=== PATIENT | female | born 1960 | race American Indian/Alaskan Native ===

== ENCOUNTER 2018-09-29 08:22 | Observation (INO) | payer OTHER, MEDICARE ==
--- NOTE | 2018-09-23 09:33 | History and Physical Report ---
History of Present Illness Date of examination: 09/23/18 Date of admission: 09/29/18 Chief complaint: heavy vaginal bleeding History of present illness: Visit Type: Pre-Op CC: pre op. History of Present Illness: pt presents for Pre op visit: Hysterectomy.....adonis Pt here for perimenopausal bleeding that she continues to have. Pt states that she desires to have hyst. She is s/p Novasure w/o any improvement in sx. She does not have a monthly menses but when it does come it is very heavy. I have discussed with pt the risk/ benefits of salpingectomy at time of LAVH. She desires to have this procedure also. All risk/benefits/alternatives were d/w pt and questions were addressed and answered. Pt is s/p medical clearance from PCP for this procedure. She does have h/o DVT but has not been on medications in two years except for immediately post op. Consents have be signed and placed on the chart. Vital Signs: Patient Profile: 58 Years Old Female Height: 65 inches (165.10 cm) Weight: 213 pounds BMI: 35.44 BP sittin / 84 (left arm) Current Method of Contraception: BTL Date of Last Pap Smear: 08/26/2018 Past History : 8 Term Births: 4 Living Children: 4 Para: 4 Prev : 2 Elect. Ab: 4 [employer] History Operations: positive Notes prior complications from surgery: breast lift/tummy tuck Infection History HIV Risk Eval: no TB exposure: no Partner hx. of genital herpes: no Hx of STD: None Active Medications (reviewed today): SEROQUEL () Current Allergies (reviewed today): * ESTROGEN MEDS (Critical) Past Medical History: Hypothyroidism DVT/PE -1992( afte ocps) 2014 ( after tummy tuck and breast lift)-currently not taking any medications Family History Summary: Reviewed history Last on 08/26/2018 and no changes required:09/28/2018 General Comments - FH: HTN BIPOLOAR D/O DEPRESSION FIBROIDS THYROID CANCER Social History: Reviewed history from 10/06/2014 and no changes required: Patient is no e/t/d retired teacher(high school math) Risk Factors: Smoked Tobacco Use: Never smoker Smokeless Tobacco Use: Never Drug use: no HIV high-risk behavior: no Alcohol use: yes Exercise: yes Seatbelt use: 100 % PAP Smear History: Date of Last PAP Smear: 08/26/2018 [[facility]] [Labs In-House] Physical Exam Appearance: well developed, well nourished, no acute distress Other Exams Breast exam: no masses or nipple discharge Abdomen: soft, non-tender, no masses, bowel sounds normal Skin: no ulcers, xanthomas Lymph: no cervical, axillary, or inguinal adenopathy Extremities: normal alignment, no joint enlargement, crepitus, masses or tenderness; normal tone and strength Genitourinary Exam Vulva: normal, no lesions or discharge Urethral meatus: normal size and location, no lesions or discharge Urethra: no discharge Bladder: no cystocele Vagina: normal appearance, no discharge, lesions. No evidence of cystocele or rectocele. Cervix: normal appearance, no lesions, no discharge Uterus: normal position, midline, mobile Adnexa: no masses or tenderness Past History Past Medical History: other (see hpi) Past Surgical History: other (see hpi) [employer] History: other (see hpi) Social history: other (see hpi) Medications and Allergies Allergies Allergy/AdvReac Type Severity Reaction Status Date / Time Estrogens Allergy Blood clots Verified 09/22/18 16:08 Home Medications Medication Instructions Recorded Confirmed Last Taken Type Quetiapine Fumarate [SEROquel XR] 150 mg PO HS 03/09/15 09/22/18 03/19/15 History Review of Systems All systems: negative - Physical Exam Breasts: Positive: deferred Cardiovascular: Normal S1, Normal S2 Lungs: Positive: Clear to auscultation, Normal air movement Abdomen: Positive: normal appearance, soft, normal bowel sounds. Negative: distention, tenderness, guarding Genitourinary (Female): Positive: normal external genitalia, normal perenium Vulva: both: normal Vagina: Positive: normal moisture Uterus: Positive: normal size, normal contour Anus/Rectum: Positive: normal perianal skin Extremities: Positive: normal. Negative: tenderness, edema Results Result Diagrams: 09/23/18 10:25 09/23/18 10:25 All other labs normal. Assessment and Plan - Patient Problems (1) Ovarian cyst Status: Acute Qualifiers: Laterality: left Qualified Code(s): N83.202 - Unspecified ovarian cyst, left side Plan to address problem: -likely functional as per sono findings -will evaluate via laproscopy -possible cystectomy vs oophrectomy (2) History of DVT (deep vein thrombosis) Status: Acute Plan to address problem: -no meds in 2 yeas except for after surgical procedures -will start lovenoxx 12hrs post op/ SCDs during surgery (3) Hypothyroidism Status: Acute Plan to address problem: -stable at this time -cleared for surgery by PCP (4) Menorrhagia with irregular cycle Status: Acute Plan to address problem: -consented for lavh with bs possible ex lap with AMINA with BS -All risk, benefits and alternatives were d/w pt and questions were addressed and answered. -consents signed and placed on the chart.
[2018-09-23 10:51] LABS: Hematocrit 40.5 % (30.3-42.9); Hemoglobin 13.5 gm/dl (10.1-14.3); Mean Corpuscular HGB Conc 33 % (30-34); Mean Corpuscular Volume 82 fl (79-97); Platelet Count 293 K/mm3 (140-440); Red Blood Count 4.96 M/mm3 (3.65-5.03); Red Cell Distribution Width 14.2 % (13.2-15.2)
[2018-09-23 11:20] LABS: BUN/Creatinine Ratio 13; Blood Urea Nitrogen 9 mg/dL (7-17); Calcium 9.6 mg/dL (8.4-10.2); Hemolysis Index 2
--- NOTE | 2018-09-23 12:22 | Anesthesia Consultation ---
Anesthesia Consult and Med Hx Date of service: 09/23/18 - Airway Anesthetic Teeth Evaluation: Good ROM Head & Neck: Adequate Mental/Hyoid Distance: Adequate Mallampati Class: Class II Intubation Access Assessment: Good - Pulmonary Exam CTA: Yes - Cardiac Exam Cardiac Exam: RRR - Pre-Operative Health Status ASA Pre-Surgery Classification: ASA2 (Pt has hx of delayed onset of anesthesia requiring increased medication , then followed by delayed awakening from anesthesia) - Pulmonary Hx Smoking: No Hx Asthma: No Hx Sleep Apnea: Yes ("mild" no CPAP) - Cardiovascular System Hx Hypertension: No Hx Coronary Artery Disease: No Hx Angina: Yes (recent admit for CP and SOB, ER w/u with negative stress, enzymes, and EKG.) Hx Heart Murmur: Yes - Central Nervous System Hx Seizures: No CVA: No Hx Psychiatric Problems: Yes - Gastrointestinal Hx Gastroesophageal Reflux Disease: Yes - Endocrine Hx Renal Disease: No Hx Liver Disease: No Hx Non-Insulin Dependent Diabetes: No - Hematic Hx Anemia: Yes - Other Systems Hx Alcohol Use: Yes (Occas) Hx Cancer: No
[2018-09-23 12:37] LABS: Basophils % (Manual) 0 % (0.0-1.8); Total Cells Counted 100
[2018-09-23 12:38] LABS: Platelet Estimate Consistent w Auto; RBC Morphology Normal
[~2018-09-29 08:22] MED LIST: ANCEF/STERILE WATER 2 GM/20 ML 2 GM/20 ML SYRINGE IV NR; NEURONTIN PO NR; VERSED IV NR; ceFAZolin 2 GM in NACL 0.9% 100 ML IV ONE
[2018-09-29] MEDS ORDERED: METHYLENE BLUE ONE (08:28)
[2018-09-29] MEDS ORDERED: MARCAINE 0.5% INFILTRATI ONE ×3 (08:28→11:20)
[2018-09-29] MEDS ORDERED: Vasostrict ONE (08:28)
[2018-09-29] MEDS ORDERED: NACL 0.9% 100 ML ONE (08:28)
[2018-09-29] MEDS: LACTATED RINGERS 1,000 ML IV SCH ×2 (08:55→18:32)
[2018-09-29] MEDS ORDERED: ZOFRAN IV PRN (09:28)
--- NOTE | 2018-09-29 09:28 | Anesthesia Day of Surgery ---
Anesthesia Day of Surgery - Day of Surgery Patient Examined: Yes Patient H&P Reviewed: Yes Patient is NPO: Yes
[2018-09-29] MEDS ORDERED: DECADRON ONE (10:09)
[2018-09-29] MEDS ORDERED: TORADOL ONE ×2 (10:09→15:11)
[2018-09-29] MEDS ORDERED: XYLOCAINE MPF 2% ONE (10:09)
[2018-09-29] MEDS ORDERED: ZEMURON IV ONE (10:09)
[2018-09-29] MEDS ORDERED: ZOFRAN ONE (10:09)
[2018-09-29] MEDS ORDERED: SUBLIMAZE ONE (10:10)
[2018-09-29] MEDS ORDERED: KETALAR ONE (10:10)
[2018-09-29] MEDS ORDERED: DIPRIVAN 10 MG/ML IV ONE (10:10)
[2018-09-29] MEDS ORDERED: Vasostrict IM ONE (11:20)
[2018-09-29] MEDS ORDERED: NACL 0.9% IR ONE (12:45)
--- NOTE | 2018-09-29 13:51 | Operative Report ---
Operative Report Operative Report: Date of procedure: 09/29/2018 Pre-operative diagnosis: Menorrhagia Adnexal mass Post-operative diagnosis: Same plus paratubal cysts Procedure name(s): Laparoscopic assisted vaginal hysterectomy Bilateral salpingectomy Surgeon: America Carias MD Freelance Translator: Dr. Tania Fishman Anesthesia: Gen. endotracheal anesthesia EBL: 300 mL Urine output: 500 mL of clear urine out at end of procedure Fluids: 1 L Findings: Left paratubal cyst was noted that included the fimbria of the left 2 Normal ovaries bilaterally grossly normal uterus Adhesions noted in the left adnexa to the pelvic sidewall on the left side Indications: Patient with menorrhagia as well as endometrial ablation. Patient desired definitive therapy. Patient also notes to have adnexal mass on pelvic ultrasound done in office. Patient was consented for above-stated procedures. All risks benefits and alternatives were discussed with patient. Consents were signed and placed on the chart. Procedure: Patient was taken to the operating room where she was placed under general endotracheal anesthesia. She was then prepped and draped in sterile fashion. It was at this point that the medium V care uterine manipulator was placed inside of the uterus after the uterus was sounded to approximately 10 cm. Pink catheter was also placed at this time. Attention was then turned to the umbilicus in which a supraumbilical incision was made. Under direct visualization the 5 mm trocar was placed inside the peritoneum the peritoneum was then insufflated. As at this point that the laparoscopic portion of the procedure was performed. 2 lateral 5 mm ports were also placed under direct visualization. Using the tripolar instrument the upper pedicles were cauterized and transected to the including round ligament with excellent hemostasis noted bilaterally. R fallopian tubes were also removed using the tripolar instrument at this time. Excellent hemostasis noted. Attention was then turned vaginally. A weighted speculum was placed into the vagina and the cervix was grasped with a single-tooth tenaculum 2. The cervix was then injected circumferentially with Pitressin. The cervix was then circumferentially incised with the scalpel and the bladder dissected off of the pubovesical cervical fascia anteriorly with a sponge stick and Metzenbaum scissors. The same procedure was performed posteriorly and the posterior cul-de-sac was entered into sharply without difficulty. At this point a Lexi Clamp was placed over the uterosacral ligaments on either side. These were then transected and suture ligated with 0 Vicryl. Hemostasis was assured. The cardinal ligaments were then clamped on both sides transected and suture ligated in similar fashion. The uterine arteries were then serially clamped with Lexi clamps transected and suture ligated on both sides. Excellent hemostasis was visualized. After it was clear that the uterus had been completely from all pedicles the uterus was removed vaginally intact with cervix intact. The vaginal cuff angles were closed with figure of 8 stitches of 0 Vicryl on both sides. The peritoneum was incorporated in the stitching of the vaginal cuff. A series of interrupted figure of 8 sutures using 0 Vicryl were used to close the entire vaginal cuff. Excellent hemostasis was noted. The vagina was then irrigated copiously. Attention was then turned laparoscopically at which time. Again all pedicles were noted to be hemostatic. The ureters were identified bilaterally with peristalsis noted bilaterally. Frankie was placed along the vaginal cuff and pelvic pedicles. Excellent hemostasis was noted. All instruments were then removed from the abdomen and the vagina. All gas was released from the abdomen. The abdominal incisions were closed using 4-0 Monocryl. All of the abdominal incisions were injected with Marcaine without epi. Patient tolerated the procedure well sponge lap and needle counts were all correct 3 the patient was taken to the recovery room awake and in stable condition.
[2018-09-29] MEDS ORDERED: NARCAN 0.4 MG/1 ML IV PRN (13:53)
[2018-09-29] MEDS ORDERED: MORPHINE IV PRN (13:53)
[2018-09-29] MEDS ORDERED: TYLENOL PO PRN (13:53)
[2018-09-29] MEDS ORDERED: ROBINUL ONE (13:55)
[2018-09-29] MEDS ORDERED: BLOXIVERZ ONE (13:55)
[2018-09-29] MEDS: DILAUDID IV PRN ×2 (14:52→15:05)
[2018-09-29] MEDS ORDERED: DILAUDID ONE (14:52)
[2018-09-29] MEDS: TORADOL IV SCH ×2 (15:11→21:09)
--- NOTE | 2018-09-29 17:22 | Post Anesthesia Evaluation ---
- Post Anesthesia Evaluation Patient Participated: Yes Airway Patent: Yes Stable Respiratory Function: Yes Nausea/Vomiting: No Temp > 96.8F: Yes Pain Manageable: Yes Adequeate Hydration: Yes Anesthesia Complications: No
--- NOTE | 2018-09-29 17:30 | Event Note ---
Date: 09/29/18 Post OP check: Pt sitting in bed eating a regular diet doing well. Clear diet was ordered for dinner. Pt states she has no nausea or vomiting at this time so will con't the regular diet. Findings of surgery were d/w pt and questions were addressed and answered. Pt states pain is well controlled she has no questions or concerns at this time.
[2018-09-29] MEDS: ANCEF/NS 1 GM/50 ML 1 GM/50 ML BAG IV SCH (21:11)
[2018-09-29] MEDS ORDERED: SEROquel 50 MG, SEROquel 100 MG PO SCH (22:00)
[2018-09-30] MEDS ORDERED: LOVENOX SUB-Q SCH ×3 (01:00→10:00)
[2018-09-30] MEDS ORDERED: NORCO 5/325 PO PRN (01:00)
[2018-09-30] MEDS: ANCEF/NS 1 GM/50 ML 1 GM/50 ML BAG IV SCH (03:20)
[2018-09-30] MEDS: TORADOL IV SCH (03:20)
[2018-09-30 05:35] LABS: Hematocrit 33.6 % (30.3-42.9)
--- NOTE | 2018-09-30 08:10 | Progress Note ---
Assessment and Plan - Patient Problems (1) Ovarian cyst Current Visit: No Status: Acute Qualifiers: Laterality: left Qualified Code(s): N83.202 - Unspecified ovarian cyst, left side (2) History of DVT (deep vein thrombosis) Current Visit: No Status: Acute Plan to address problem: -no meds in 2 yeas except for after surgical procedures -will start lovenoxx 12hrs post op/ SCDs during surgery (3) Hypothyroidism Current Visit: No Status: Acute (4) Menorrhagia with irregular cycle Current Visit: No Status: Acute (5) S/P laparoscopic assisted vaginal hysterectomy (LAVH) Current Visit: Yes Status: Acute Plan to address problem: -doing well -routine post op care -d/c home this am if remains AFVSS and has met d/c criteria. Subjective - Subjective Date of service: 09/30/18 Principal diagnosis: POD #1 s/p LAVH, BS, removal of peritubular cyst Interval history: Pt doing well dressed and states she is ready to go home. She denies and fevers or chills and states that her pain is well controlled.She has spontaneously voided as per RN but pt state she has not. I d/w that she will need to void on her own and if she does she will be ready for d/c home. Pt states understanding. Patient reports: appetite normal, voiding normally, pain well controlled, flatus, ambulating normally, no dizzy ambulation, no nauseated Objective - Vital Signs Latest vital signs: Vital Signs Temp Pulse Pulse Resp Resp BP BP 09/30/18 04:20 98 F 62 18 108/74 09/30/18 03:20 18 09/30/18 00:00 98.7 F 71 16 102/74 09/29/18 21:39 18 09/29/18 21:09 18 09/29/18 21:00 80 18 18 09/29/18 19:30 98.4 F 78 16 118/72 09/29/18 15:35 97.6 F 83 14 109/72 09/29/18 15:30 97.7 F 85 16 108/67 09/29/18 15:22 16 09/29/18 15:15 83 10 L 111/72 09/29/18 15:11 13 09/29/18 15:05 14 09/29/18 15:00 84 10 L 105/73 09/29/18 14:52 14 09/29/18 14:45 88 14 114/65 09/29/18 14:30 82 13 116/61 09/29/18 14:15 78 11 L 117/63 09/29/18 14:05 78 12 120/65 09/29/18 14:00 83 14 116/70 09/29/18 13:56 97.8 F 87 14 128/77 09/29/18 09:00 97.5 F L 86 16 124/65 09/29/18 08:55 97.5 F L 86 16 124/65 Pulse Ox 09/30/18 04:20 09/30/18 03:20 09/30/18 00:00 09/29/18 21:39 09/29/18 21:09 09/29/18 21:00 09/29/18 19:30 09/29/18 15:35 97 09/29/18 15:30 97 09/29/18 15:22 09/29/18 15:15 97 09/29/18 15:11 09/29/18 15:05 09/29/18 15:00 98 09/29/18 14:52 09/29/18 14:45 96 09/29/18 14:30 100 09/29/18 14:15 100 09/29/18 14:05 100 09/29/18 14:00 99 09/29/18 13:56 100 09/29/18 09:00 97 09/29/18 08:55 97 Intake and Output 09/29/18 09/30/18 09/30/18 22:59 06:59 14:59 Intake Total 1811.667 Output Total 1989 2299 Balance -178.333 -2300 Intake: IV 971.667 Lactated Ringers 1,000 ml 961.667 @ 100 mls/hr IV DIRECT [facility] Rx#:[id number] Left Hand 10 Oral 840 Output: Urine 1989 2299 Indwelling Catheter 950 2300 Uretheral (Pink) 120 Other: Total, Intake Amount 480 Total, Output Amount 800 800 Voiding Method Indwelling Catheter Weight 92.079 kg - Exam Breasts: Present: normal Cardiovascular: Present: Normal S1, Normal S2 Lungs: Present: Clear to auscultation, Normal air movement Abdomen: Present: normal appearance, soft, normal bowel sounds. Absent: dis tention, tenderness, guarding Extremities: Present: normal. Absent: tenderness, edema Deep Tendon Reflex Grade: Normal +2 Incision: Present: normal, dry, intact (open to air)
--- NOTE | 2018-09-30 08:15 | Discharge Summary ---
Providers - Providers Date of Admission: 09/29/18 13:53 Date of discharge: 09/30/18 Attending physician: PABLO TRAMMELL Primary care physician: JEB DAMON MD Hospitalization Reason for admission: other (menorrhagia) Procedure: other (LAVH with BS and removal or peritubalar cyst) Procedure details: see op note Incision: normal, dry, intact Discharge diagnosis: other (s/p LAVH with BC and removal of peritubular cyst) Hospital course: Pt admitted for above stated procedure. Post op course has not been complicated. Pt will be d/c home once d/c criteria has been met. Pt will get Lovenox this am prior to d/c home given h/o DVT and PE. Condition at discharge: Good Disposition: DC-01 TO HOME OR SELFCARE - Discharge Diagnoses (1) Ovarian cyst Status: Acute Qualifiers: Laterality: left Qualified Code(s): N83.202 - Unspecified ovarian cyst, left side (2) History of DVT (deep vein thrombosis) Status: Acute (3) Hypothyroidism Status: Acute (4) Menorrhagia with irregular cycle Status: Acute (5) S/P laparoscopic assisted vaginal hysterectomy (LAVH) Status: Acute Plan - Discharge Medications Prescriptions: Ibuprofen [Motrin 800 MG tab] 800 mg PO Q8HR PRN #60 tablet PRN Reason: Pain, Moderate (4-6) oxyCODONE /ACETAMINOPHEN [Percocet 5/325] 1 tab PO Q4HR #30 tab - Provider Discharge Summary Activity: routine, no sex for 6 weeks, no heavy lifting 4 weeks Diet: routine Instructions: routine Additional instructions: [] Smoking cessation referral if applicable(refer to patient education folder for contact #) [] Refer to [facility] Booklet Call your doctor immediately for: * Fever > 100.5 * Heavy vaginal bleeding ( >1 pad per hour) * Severe persistent headache * Shortness of breath * Reddened, hot, painful area to leg or breast * Drainage or odor from incision. * Keep incision clean and dry at all times and follow doctor's instructions regarding bathing/showering - Follow up plan Follow up: JEB DAMON MD [Primary Care Provider] - 7 Days
[2018-09-30 09:25] VITALS: BP 118/71
== END 2018-09-30 08:00 | disposition home or self-care (01) ==
LOC: OR 08:22 → OB 13:53
PROVIDERS: ADMIT Obstetrics & Gynecology; ATTEND Obstetrics & Gynecology
DX: N92.1 Excessive and frequent menstruation with irregular cycle (principal); N83.202 Unspecified ovarian cyst, left side; Z86.718 Personal history of other venous thrombosis and embolism; E03.9 Hypothyroidism, unspecified
CPT/HCPCS: 36415; 58552; 80048; 81025; 84703; 85007; 85014; 85018; 85025; 86850; 86900; 86901; 88302; 88304; 88307; 96365; 96375; 96376; A4217; G0378; J0690; J1100; J1170; J1885; J2250; J2405; J2704; J2710; J3010; J7120; S2900; J1650; Q9968